=== PATIENT | male | born 1980 | race Caucasian/White ===

== ENCOUNTER 2018-05-13 11:03 | Emergency (ER) | payer MEDICAID ==
[~2018-05-13] VITALS: Ht 177.8 cm; Wt 93.7 kg
[2018-05-13 11:13] VITALS: BP 138/104
[2018-05-13] MEDS ORDERED: HYDROcodone/APAP 5/325 MG 1 TAB TAB PO ONE (11:40)
[2018-05-13 13:19] VITALS: BP 140/92
== END 2018-05-13 13:17 | disposition home or self-care (01) ==
LOC: MED 11:03
DX: K40.20 Bilateral inguinal hernia, without obstruction or gangrene, not specified as recurrent (principal); R11.0 Nausea; Z88.0 Allergy status to penicillin
CPT/HCPCS: 72192; 81002; 99284

== ENCOUNTER 2018-05-16 07:10 | Emergency (ER) | payer MEDICAID ==
[~2018-05-16] VITALS: Ht 175.3 cm; Wt 93.0 kg
[2018-05-16 07:15] VITALS: BP 143/100
[2018-05-16 08:52] LABS: BASOPHILS # (AUTO) 0.1 K/uL (0.00-0.22); BASOPHILS % (AUTO) 0.7 % (0.0-2.0); EOSINOPHILS # (AUTO) 0.4 K/uL (0-0.4); EOSINOPHILS % (AUTO) 4.9 % (0.0-4.0); HEMATOCRIT 43.2 % (36-52); HEMOGLOBIN 14.8 g/dL (12.0-18.0); LYMPHOCYTES # (AUTO) 1.4 K/uL (2.0-11.5); LYMPHOCYTES % (AUTO) 17.5 % (20.5-51.1); MEAN CORPUSCULAR HEMOGLOBIN 30 pg (27-31); MEAN CORPUSCULAR HGB CONC 34 g/dL (33-37); MEAN CORPUSCULAR VOLUME 88.8 fL (80-94); MONOCYTES # (AUTO) 0.6 K/uL (0.8-1.0); MONOCYTES % (AUTO) 7.4 % (1.7-9.3); NEUTROPHILS # (AUTO) 5.4 K/uL (1.8-7.7); NEUTROPHILS % (AUTO) 69.5 % (42.2-75.2); PLATELET COUNT (AUTO) 214 K/uL (140-450); RED BLOOD CELL COUNT(AUTO) 4.87 MIL/uL (4.20-6.10); RED CELL DISTRIBUTION WIDTH 13.1 % (11.6-13.7); WHITE BLOOD COUNT (AUTO) 7.8 K/uL (4.8-10.8)
[2018-05-16 09:17] LABS: PROTHROMBIN TIME 9.6 secs (10.8-13.4)
[2018-05-16 10:06] LABS: ANION GAP 15.1 (8-16); CARBON DIOXIDE 22.5 mmol/L (21-32); POTASSIUM 4.6 mmol/L (3.5-5.1)
[2018-05-16 10:08] LABS: ALBUMIN 3.5 g/dL (3.4-5.0); CREATININE 4.3 mg/dL (0.7-1.3); TOTAL BILIRUBIN 0.4 mg/dL (0.0-1.0)
[2018-05-16 10:15] VITALS: BP 137/87
== END 2018-05-16 10:14 | disposition home or self-care (01) ==
LOC: MED 07:10
DX: I12.9 Hypertensive chronic kidney disease with stage 1 through stage 4 chronic kidney disease, or unspecified chronic kidney disease (principal); N18.9 Chronic kidney disease, unspecified; N50.89 Other specified disorders of the male genital organs; I25.10 Atherosclerotic heart disease of native coronary artery without angina pectoris; Z88.0 Allergy status to penicillin
CPT/HCPCS: 36415; 80053; 85025; 85610; 85730; 99283

== ENCOUNTER 2019-08-11 23:23 | Inpatient (IN) | payer MEDICAID ==
[~2019-08-11] VITALS: Ht 175.3 cm; Wt 90.7 kg
[2019-08-11 23:40] VITALS: BP 127/80
--- NOTE | 2019-08-11 23:40 | NUR ---
TO BED # 5 AMBULATORY
[2019-08-12] MEDS ORDERED: ASPIRIN 81 MG TAB.CHEW PO ONE
[2019-08-12] MEDS ORDERED: KETOROLAC 30 MG/ML VIAL IM ONE (00:10)
--- NOTE | 2019-08-12 00:10 | NUR ---
38 YEAR OLD MALE COMPLAINS OF NONRADIATING CHEST PAIN X 1 HOUR. PATIENT STATES THAT HIS PAIN WOULD BE ON/OFF AND THAT THERE WOULD BE SHORTNESS OF BREATHE ASSOCIATED. PATIENT STATES PAIN IS NOT CURRENTLY BAD IT WAS. PATIENT AOX4, BREATHING EVEN AND UNLABORED, SKIN WARM AND DRY. BED IN LOWEST POSITION, LOCKED, BED RAIL UPX1. PMH - CKD, HTN ALLERGIES - PCN
[2019-08-12 00:22] LABS: BASOPHILS % (AUTO) 0.6 % (0.0-2.0); EOSINOPHILS # (AUTO) 0.2 K/uL (0-0.4); EOSINOPHILS % (AUTO) 2.2 % (0.0-4.0); HEMATOCRIT 36.3 % (36-52); HEMOGLOBIN 12.1 g/dL (12.0-18.0); LYMPHOCYTES # (AUTO) 1.9 K/uL (2.0-11.5); LYMPHOCYTES % (AUTO) 23.8 % (20.5-51.1); MEAN CORPUSCULAR HEMOGLOBIN 30 pg (27-31); MEAN CORPUSCULAR HGB CONC 33 g/dL (33-37); MONOCYTES # (AUTO) 0.6 K/uL (0.8-1.0); MONOCYTES % (AUTO) 8.1 % (1.7-9.3); NEUTROPHILS # (AUTO) 5.1 K/uL (1.8-7.7); NEUTROPHILS % (AUTO) 65.3 % (42.2-75.2); PLATELET COUNT (AUTO) 144 K/uL (140-450); RED BLOOD CELL COUNT(AUTO) 3.99 MIL/uL (4.20-6.10); RED CELL DISTRIBUTION WIDTH 13.4 % (11.6-13.7); WHITE BLOOD COUNT (AUTO) 7.8 K/uL (4.8-10.8)
[2019-08-12 00:38] LABS: ALBUMIN 3.5 g/dL (3.4-5.0); ANION GAP 18.7 (8-16); CARBON DIOXIDE 17.6 mmol/L (21-32); POTASSIUM 4.3 mmol/L (3.5-5.1); TOTAL BILIRUBIN 0.3 mg/dL (0.0-1.0)
[2019-08-12 00:52] LABS: CREATININE 5.5 mg/dL (0.6-1.3)
--- NOTE | 2019-08-12 01:29 | NUR ---
PATIENT ALERT AND AWAKE, BREATHING EVEN AND UNLABORED
[2019-08-12] MEDS ORDERED: ONDANSETRON 4 MG/2 ML VIAL IM/IVP PRN (01:30)
[2019-08-12] MEDS ORDERED: DOCUSATE SODIUM 100 MG GELCAP PO PRN (01:30)
[2019-08-12] MEDS ORDERED: HYDROcodone/APAP 7.5/325 MG 1 TAB PO PRN (01:30)
[2019-08-12] MEDS ORDERED: ACETAMINOPHEN 325 MG TAB PO PRN (01:30)
[2019-08-12] MEDS: DEXT 5% /NACL 0.9% 1,000 ML IV SCH ×3 (02:25→18:57)
--- NOTE | 2019-08-12 02:26 | NUR ---
PATIENT ALERT AND AWAKE, BREATHING EVEN AND UNLABORED
[2019-08-12 03:08] LABS: PROTHROMBIN TIME 9.7 secs (10.8-13.4)
--- NOTE | 2019-08-12 03:19 | NUR ---
PATIENT RESTING WITH EYES CLOSED, BREATHING EVEN AND UNLABORED
--- NOTE | 2019-08-12 04:30 | NUR ---
PATIENT RESTING WITH EYES CLOSED, BREATHING EVEN AND UNLABORED
[2019-08-12] MEDS ORDERED: ASPI-1822 PO (05:14)
[2019-08-12] MEDS ORDERED: CLON0.1T42 PO ×2 (05:15→16:55)
[2019-08-12] MEDS ORDERED: PATI8.4P PO (05:16)
[2019-08-12] MEDS ORDERED: AMLO10TA PO (05:17)
[2019-08-12] MEDS ORDERED: SEVE800T6 PO (05:17)
[2019-08-12] MEDS ORDERED: CARV25TA PO (05:18)
--- NOTE | 2019-08-12 05:30 | NUR ---
PATIENT RESTING WITH EYES CLOSED, BREATHING EVEN AND UNLABORED
[2019-08-12 05:36] LABS: CHOL/HDL RATIO 7.3 (1-4.5); FREE T4 (FREE THYROXINE) 0.98 ng/dL (0.76-1.46); MAGNESIUM 1.8 mg/dL (1.8-2.4); PHOSPHORUS 5.2 mg/dL (2.5-4.9); THYROID STIMULATING HORMONE 3.48 uIU/mL (0.34-3.74)
[2019-08-12 05:54] LABS: APPEARANCE,URINE CLEAR (CLEAR); BILIRUBIN,URINE NEGATIVE (NEGATIVE); BLOOD, URINE TRACE-L (NEGATIVE); COLOR,URINE YELLOW (YELLOW); LEUKOCYTE ESTERASE ,URINE NEGATIVE (NEGATIVE); NITRITE, URINE NEGATIVE (NEGATIVE); UGLUCOSE NEGATIVE (NEGATIVE)
[2019-08-12 06:05] LABS: BARBITURATE, URINE NEG. ng/ml (NEG <=200); BENZODIAZEPINE, URINE NEG. ng/mL (NEG <=200); CANNABINOID, URINE NEG. ng/mL (NEG <=50); COCAINE, URINE NEG. ng/mL (NEG <=300); OPIATE, URINE NEG. ng/mL (NEG <=2000); PHENCYCLIDINE SCREEN,URINE NEG. ng/mL (NEG <=25)
[2019-08-12 06:10] LABS: RBC,URINE 0-5 /HPF (0-5); WBC,URINE 0-5 /HPF (0-5)
[2019-08-12 06:21] LABS: BASOPHILS % (AUTO) 0.5 % (0.0-2.0); EOSINOPHILS # (AUTO) 0.2 K/uL (0-0.4); EOSINOPHILS % (AUTO) 2.8 % (0.0-4.0); HEMATOCRIT 35.6 % (36-52); HEMOGLOBIN 11.9 g/dL (12.0-18.0); LYMPHOCYTES # (AUTO) 1.7 K/uL (2.0-11.5); LYMPHOCYTES % (AUTO) 27.4 % (20.5-51.1); MEAN CORPUSCULAR HEMOGLOBIN 31 pg (27-31); MEAN CORPUSCULAR HGB CONC 34 g/dL (33-37); MONOCYTES # (AUTO) 0.5 K/uL (0.8-1.0); MONOCYTES % (AUTO) 9.1 % (1.7-9.3); NEUTROPHILS # (AUTO) 3.6 K/uL (1.8-7.7); NEUTROPHILS % (AUTO) 60.2 % (42.2-75.2); PLATELET COUNT (AUTO) 128 K/uL (140-450); RED BLOOD CELL COUNT(AUTO) 3.91 MIL/uL (4.20-6.10); RED CELL DISTRIBUTION WIDTH 13.6 % (11.6-13.7)
[2019-08-12 06:25] LABS: ANION GAP 16.6 (8-16); CARBON DIOXIDE 20.5 mmol/L (21-32); POTASSIUM 4.1 mmol/L (3.5-5.1)
--- NOTE | 2019-08-12 06:30 | NUR ---
PATIENT RESTING WITH EYES CLOSED, BREATHING EVEN AND UNLABORED
[2019-08-12 06:44] LABS: CREATININE 5.4 mg/dL (0.6-1.3)
[2019-08-12 07:15] VITALS: BP 139/85
--- NOTE | 2019-08-12 07:15 | NUR ---
PT ARRIVED UNIT VIA GURNEY ACCOMPANY WITH YENY AND ED NURSE URBAN. PT IS AAOX4, SPEAKS UZBEK AND ABLE COMMUNICATE APPROPRIATELY. RESPIRATION EVEN AND UNLABORED ON RA. NO SIGNS OF DISTRESS NOTED. IV ON LAC 20G, CLEAN AND INTACT, SL AT THIS TIME. SKIN CLEAN AND DRY. PT IS CONTINENT AND ABLE TO AMBULATE. VITAL SIGNS TAKEN: BP 139/85 PULSE 68, RR 18, SPO2 97% ON RA, DENIED PAIN, SOB AND DIZZINESS AT THIS TIME. DISCUSSED PLAN OF CARE WITH PT AND , BOTH SAID OK. NPO SIGN POSTED BY DOOR AND PT AND AWARE. APPLIED ALLERGY WRIST BAND. TELE MONITOR ATTACHED. ORIENTED PT AND TO ROOM, INSTRUCTED TO USE THE CALL LIGHT FOR ANY ASSISTANCE AND BOTH AWARE. SAFETY MEASURES IN PLACE. BED IN LOW POSITION AND CALL LIGHT WITHIN REACH.
--- NOTE | 2019-08-12 07:15 | NUR ---
Patient will be admitted to care of Dr Chavarria. Admited to tele. Will go to room 125A. Belongings list completed. Report to Leti ROBERTS.
--- NOTE | 2019-08-12 07:42 | NUR ---
STARTED IVF D5NS PER MD ORDER, INFUSING 125 ML/HR. EXPLAINED TO PT AND FAMILY AT BEDSIDE THAT PT IS MAINTAIN NPO, ALL AWARE. MRSA NARES COLLECTED. PT IS AWAKE AND RESTING ON BED. NO SIGNS OF DISTRESS NOTED. TELE MONITOR ATTACHED. SAFETY MEASURES IN PLACE.
[2019-08-12] MEDS: METOPROLOL 25 MG TAB PO SCH ×2 (09:57→20:55)
--- NOTE | 2019-08-12 09:57 | NUR ---
ADMINISTERED SCHEDULED MED PER MD ORDER, MED ED PROVIDED TO PT AND AT BEDSIDE, BOTH VERBALIZED UNDERSTANDING. PT TOLERATED PO MED WELL WITH A SIP OF WATER. NO SIGNS OF DISTRESS NOTED. TELE MONITOR ATTACHED. SAFETY MEASURES IN PLACE. INSTRUCTED PT AND TO USE THE CALL LIGHT FOR ANY ASSISTANCE AND BOTH AWARE.
--- NOTE | 2019-08-12 11:25 | NUR ---
PT IS RESTING ON BED. YENY IS BY BEDSIDE. DENIED PAIN, SOB AND DIZZINESS. NO SIGNS OF DISTRESS NOTED. TELE MONITOR ATTACHED. SAFETY MEASURES IN PLACE.
[2019-08-12 12:00] VITALS: BP 120/68
--- NOTE | 2019-08-12 13:07 | NUR ---
EXPLAINED TO PT AND YENY THAT URINE SAMPLE IS NEEDED AND PROVIDED SPECIMEN CUP. INSTRUCTED PT TO URINE INTO CUP WHEN HE HAS URINE. PT AWARE. PT IS RESTING ON BED AT THIS TIME. NO SIGNS OF DISTRESS NOTED. TELE MONITOR ATTACHED. SAFETY MEASURES IN PLACE.
--- NOTE | 2019-08-12 14:04 | NUR ---
PATIENT HAS BEEN SCREENED AND CATEGORIZED MODERATE NUTRITION RISK. PATIENT WILL BE SEEN WITHIN 3-5 DAYS OF ADMISSION. 08/14/19 08/16/[address]
--- NOTE | 2019-08-12 14:15 | NUR ---
COLLECTED URINE AND DELIVERED TO LAB.
--- NOTE | 2019-08-12 15:28 | NUR ---
INFORMED PT AND THAT MD HAS CHANGE DIET FROM NPO TO CARDIAC, PROVIDED PT WITH ICE WATER AND 2 JELLO. PT IS RESTING ON BED WITH BY BEDSIDE. NO SIGNS OF DISTRESS NOTED. TELE MONITOR ATTACHED. SAFETY MEASURES IN PLACE.
[2019-08-12 16:00] VITALS: BP 161/105
--- NOTE | 2019-08-12 16:41 | NUR ---
DR BEASLEY IS ASSESSING AND TALKING TO PT AT BEDSIDE. NO SIGNS OF DISTRESS NOTED. TELE MONITOR ATTACHED.
--- NOTE | 2019-08-12 16:50 | NUR ---
INFORMED DR BRUNER THAT PT'S BP 161/[address] BRUNER WAS AWARE AND HE WILL INPUT ORDER. PT IS SITTING UP ON BED. DENIED PAIN, SOB, AND DIZZINESS. NO SIGNS OF DISTRESS NOTED. TELE MONITOR ATTACHED.
--- NOTE | 2019-08-12 16:59 | NUR ---
REDUCED IVF TO 30 ML/HR PER MD ORDER.
[2019-08-12] MEDS ORDERED: ATORVASTATIN 20 MG TAB PO SCH (17:00)
[2019-08-12 17:13] LABS: URINE SODIUM, RANDOM 90 mmol/l (40-220)
[2019-08-12] MEDS: amLODIPine 5 MG TAB PO SCH (17:23)
--- NOTE | 2019-08-12 17:23 | NUR ---
ADMINISTERED SCHEDULED MED PER MD ORDER, MED EDUCATION PROVIDED TO PT AND PT VERBALIZED UNDERSTANDING. PT AWAKE AND RESTING ON BED AT THIS TIME. DENIED ANY CHEST PAIN, DIZZINESS AND SOB. NO SIGNS OF DISTRESS NOTED. TELE MONITOR ATTACHED. SAFETY MEASURES IN PLACE. INSTRUCTED PT TO USE THE CALL LIGHT FOR ANY ASSISTANCE AND PT AWARE.
[2019-08-12 17:38] LABS: CHLORIDE,URINE RANDOM 90 mmol/L (110-250); CREATININE,URINE RANDOM 31 mg/dL (30-125)
--- NOTE | 2019-08-12 19:30 | NUR ---
ENDORSED PT AT BEDSIDE TO SUPERINTENDENT COMMISSARY NURSE TONYA FOR CONTINUITY OF CARE. PT AWAKE AND TALKING TO DAUGHTER BY BEDSIDE. NO SIGNS OF DISTRESS NOTED. PT IS IN STABLE CONDITION. TELE MONITOR ATTACHED. SAFETY MEASURES IN PLACE.
--- NOTE | 2019-08-12 19:35 | NUR ---
RECEIVED FROM AM RN IN BED AWAKE AND ALERT. DAUGHTER AT BEDSIDE TALKING TO HIM. NO COMPLAINTS DONE. RE-ORIENTED TO CALL LIGHT USE AND ROOM. ENCOURAGED TO CALL FOR ANY HELP HE MAY NEED OR IF IN PAIN. TELEMETRY MONITORING. NO SOB. SKIN INTACT. IVF SITE INTACT AND WITH GOOD BLOOD RETURN.
[2019-08-12 20:00] VITALS: BP 156/79
[2019-08-12] MEDS: cloNIDine 0.1 MG TAB PO SCH (20:55)
[2019-08-12] MEDS ORDERED: CARVEDILOL 12.5 MG TAB PO SCH (21:00)
--- NOTE | 2019-08-12 22:35 | NUR ---
PT. STILL AWAKE AND WATCHING TV. NO COMPLAINTS DONE. TELEMETRY MONITORING.
[2019-08-13] VITALS: BP 98/63
--- NOTE | 2019-08-13 01:14 | NUR ---
SLEEPING. WAKES UP WHEN TOUCHED. NO COMPLAINTS OF ANY PAIN DONE SINCE START OF SHIFT. CALL LIGHT WITH IN REACH.
[2019-08-13 04:00] VITALS: BP 127/81
--- NOTE | 2019-08-13 05:49 | NUR ---
SLEEPING WELL THIS SHIFT. NO COMPLAINTS OF ANY CHEST PAIN AT THIS TIME. CALL LIGHT WITH IN REACH AT ALL TIMES. IVF SITE INTACT AND NO INFILTRATION., WITH NS AT 30 ML/HOUR. TELEMETRY MONITORING RT DX. CHEST PAIN.
[2019-08-13 06:27] LABS: BASOPHILS # (AUTO) 0.1 K/uL (0.00-0.22); EOSINOPHILS # (AUTO) 0.1 K/uL (0-0.4); EOSINOPHILS % (AUTO) 1.9 % (0.0-4.0); HEMATOCRIT 35.1 % (36-52); HEMOGLOBIN 12.4 g/dL (12.0-18.0); LYMPHOCYTES # (AUTO) 1.3 K/uL (2.0-11.5); LYMPHOCYTES % (AUTO) 20.1 % (20.5-51.1); MEAN CORPUSCULAR HEMOGLOBIN 31 pg (27-31); MEAN CORPUSCULAR HGB CONC 35 g/dL (33-37); MEAN CORPUSCULAR VOLUME 87.5 fL (80-94); MONOCYTES # (AUTO) 0.6 K/uL (0.8-1.0); MONOCYTES % (AUTO) 8.9 % (1.7-9.3); NEUTROPHILS # (AUTO) 4.4 K/uL (1.8-7.7); NEUTROPHILS % (AUTO) 68.1 % (42.2-75.2); PLATELET COUNT (AUTO) 130 K/uL (140-450); RED BLOOD CELL COUNT(AUTO) 4.01 MIL/uL (4.20-6.10); WHITE BLOOD COUNT (AUTO) 6.4 K/uL (4.8-10.8)
[2019-08-13 07:00] LABS: POTASSIUM 4.7 mmol/L (3.5-5.1)
--- NOTE | 2019-08-13 07:25 | NUR ---
RECEIVED REPORT FROM NIGHT NURSE FOR CONTINUITY OF CARE, PT IS AAOX4, ON THE PHONE WITH , PT IS STABLE, NO SIGNS OF DISTRESS NOTED, PT HAS LAC 18G RUNNING D5NS AT 30 ML, INTRODUCE SELF, UPDATE WHITEBOARD, SAFETY MEASURES IN PLACE, CALL LIGHT WITHIN REACH, WILL CONTINUE TO MONITOR.
[2019-08-13 08:00] VITALS: BP 126/78
[2019-08-13] MEDS ORDERED: SEVELAMER CARBONATE 800 MG TAB PO SCH (08:00)
[2019-08-13] MEDS ORDERED: ASPIRIN 81 MG TAB.CHEW PO SCH (08:00)
[2019-08-13 08:09] LABS: T4 (THYROXINE) 8.8 ug/dL (4.5-12.0)
[2019-08-13] MEDS: METOPROLOL 25 MG TAB PO SCH (08:21)
[2019-08-13] MEDS: cloNIDine 0.1 MG TAB PO SCH (08:22)
--- NOTE | 2019-08-13 08:22 | NUR ---
GAVE ORDERED MEDICATION, EDUCATION GIVEN, PT VERBALIZED UNDERSTANDING, PT TOLERATED WELL, PT IS STABLE, CALL LIGHT WITHIN REACH.
[2019-08-13] MEDS: amLODIPine 5 MG TAB PO SCH (08:23)
[2019-08-13 08:33] LABS: ANION GAP 14.2 (8-16); CARBON DIOXIDE 20.5 mmol/L (21-32); CREATININE 5.3 mg/dL (0.6-1.3)
--- NOTE | 2019-08-13 11:00 | NUR ---
PT IS STABLE, RESTING IN BED, PT IS ON HIS CELL PHONE, CALL LIGHT WITHIN REACH.
[2019-08-13 12:00] VITALS: BP 149/92
--- NOTE | 2019-08-13 13:15 | NUR ---
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
[2019-08-13] MEDS ORDERED: OMEP20EC11 PO (13:26)
--- NOTE | 2019-08-13 13:44 | NUR ---
PT DISCHARGED HOME, PT STABLE, PT REFUSED PNA AND FLU VACCINE, PT IV TAKEN OUT AND IT WAS INTACT, PT AMBULATE WITH STEADY GAIT TO THE FRONT LOBBY, ACCOMPANIED BY .
[2019-08-14] MEDS ORDERED: PATIROMER CALCIUM SORBITEX 8.4 GM PO SCH (09:00)
== END 2019-08-13 13:44 | disposition home or self-care (01) | DRG 243 ==
LOC: MED 23:23 → MMU 08-12 01:26
PROVIDERS: ADMIT General Practice; ATTEND General Practice
DX: K21.9 Gastro-esophageal reflux disease without esophagitis (principal); N17.0 Acute kidney failure with tubular necrosis; I25.10 Atherosclerotic heart disease of native coronary artery without angina pectoris; I12.9 Hypertensive chronic kidney disease with stage 1 through stage 4 chronic kidney disease, or unspecified chronic kidney disease; N18.4 Chronic kidney disease, stage 4 (severe); D63.1 Anemia in chronic kidney disease; N25.81 Secondary hyperparathyroidism of renal origin; Z88.0 Allergy status to penicillin
CPT/HCPCS: 36415; 71045; 76770; 80048; 80053; 80305; 81001; 82150; 82306; 82436; 82570; 83036; 83690; 83735; 83880; 83935; 84100; 84300; 84436; 84439; 84443; 84479; 84484; 84550; 85025; 85610; 85730; 87081; 87205; 96360; 96361; 96372; 99285; J1885; J7030; Q0092